=== PATIENT | female | born 1995 | race Caucasian/White ===

== ENCOUNTER 2017-06-23 23:41 | Emergency (ER) | payer OTHER ==
[~2017-06-23] VITALS: Ht 167.6 cm; Wt 61.0 kg
[2017-06-23 23:46] VITALS: TEMP 36.8; Ht 167.6 cm; Wt 61.0 kg
[2017-06-24] MEDS ORDERED: ONDANSETRON INJ 2 MG/ML 2 ML VIAL IV STA (00:18)
[2017-06-24] MEDS ORDERED: SODIUM CHLORIDE 0.9% 1000ML 1,000 ML IV STA (00:18)
[2017-06-24] MEDS ORDERED: ACETAMINOPHEN 500 MG TAB PO STA (00:18)
[2017-06-24] MEDS ORDERED: EPP3/2 IM (00:36)
--- NOTE | 2017-06-24 00:42 | EMERGENCY ROOM VISIT NOTE ---
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 Patient states that she ate the pizza bagel at a restaurant around 6 PM, her symptoms started about 3-1/2 hours after that and came on fairly suddenly. She denies any diarrhea, but states she has a sensation of needing to use the bathroom and states she just had gas. She did not take any medications for her symptoms. She states she felt a little bit better after vomiting, but continues to have some lower abdominal pain. She denies any headache, neck pain, chest pain, shortness of breath, back pain, urinary symptoms, abnormal vaginal bleeding or discharge, rash. Review of Systems A complete 10 point review of systems was reviewed with the patient with pertinent positives and negatives as per history of present illness. All else were negative. Past Medical/Surgical History No significant past medical or surgical history. Social History Smoking Status: Never Smoker Alcohol Use: none Drug Use: none Marital Status: single Occupation Status: [place] [employer] student Current/Historical Medications Scheduled Ondasetron Odt (Zofran Odt), 4 MG SL Q6H Scheduled PRN Epinephrine (Epipen), 0.3 MG IM UD PRN for ALLERGIC REACTION Allergies NKDA Physical Exam Vital Signs Date Time Temp Pulse Resp B/P (MAP) Pulse Ox O2 Delivery O2 Flow Rate FiO2 06/24/17 06:24 68 18 112/71 99 Room Air 06/24/17 04:14 66 06/24/17 02:28 76 18 108/67 100 Room Air 06/24/17 00:49 77 06/23/17 23:46 36.8 73 18 133/78 99 Room Air Physical Exam CONSTITUTIONAL: No acute distress. Nontoxic appearing. Well hydrated. Alert and oriented X 4 with normal affect. HEENT: Normocephalic, atraumatic. Pupils equal, round and reactive to light, EOMI. TMs normal. Pharynx normal. NECK: Supple, full active range of motion without discomfort. RESPIRATORY: Clear to auscultation bilaterally with no wheezing, crackles, rhonchi or stridor. Equal expansion bilaterally. CARDIOVASCULAR: Regular rate and rhythm with no murmurs, rubs or gallops. Normal peripheral perfusion. No edema. GASTROINTESTINAL: Mild tenderness in suprapubic and LLQ region, abdomen is otherwise soft and nontender, nondistended. No rebound tenderness, no guarding. No CVA tenderness. Normal bowel sounds in all 4 quadrants. MUSCULOSKELETAL: Full range of motion of all joints without discomfort. INTEGUMENTARY: No rash or other significant dermatologic conditions noted. NEUROLOGIC: Cranial nerves II-XII grossly intact. No focal neurologic deficits noted. Medical Decision & Procedures ER Provider Diagnostic Interpretation: KUB CLINICAL HISTORY: Left lower quadrant abdominal pain. FINDINGS: 2 AP standing abdominal radiographs are obtained. No prior studies are available for comparison at the time of dictation. There is a nonobstructed abdominal bowel gas pattern noting moderate colonic fecal retention. No evidence of intraperitoneal free air is seen. There are no abnormal abdominal calcifications. The bony structures appear intact. The lung bases are clear as imaged. IMPRESSION: Nonobstructed abdominal bowel gas pattern noting moderate constipation. Laboratory Results 06/24/17 00:35 Red Blood Count 4.60, Mean Corpuscular Volume 85.2, Mean Corpuscular Hemoglobin 29.3, Mean Corpuscular Hemoglobin Concent 34.4, Mean Platelet Volume 10.0, Neutrophils (%) (Auto) 84.4, Lymphocytes (%) (Auto) 10.0, Monocytes (%) (Auto) 4.6, Eosinophils (%) (Auto) 0.4, Basophils (%) (Auto) 0.2, Neutrophils # (Auto) 11.27, Lymphocytes # (Auto) 1.34, Monocytes # (Auto) 0.61, Eosinophils # (Auto) 0.05, Basophils # (Auto) 0.03 06/24/17 00:35 Test 06/24/17 00:35 White Blood Count 13.35 K/uL (4.8-10.8) Red Blood Count 4.60 M/uL (4.2-5.4) Hemoglobin 13.5 g/dL (12.0-16.0) Hematocrit 39.2 % (37-47) Mean Corpuscular Volume 85.2 fL (80-100) Mean Corpuscular Hemoglobin 29.3 pg (25-34) Mean Corpuscular Hemoglobin Concent 34.4 g/dl (32-36) Platelet Count 282 K/uL (130-400) Mean Platelet Volume 10.0 fL (7.4-10.4) Neutrophils (%) (Auto) 84.4 % Lymphocytes (%) (Auto) 10.0 % Monocytes (%) (Auto) 4.6 % Eosinophils (%) (Auto) 0.4 % Basophils (%) (Auto) 0.2 % Neutrophils # (Auto) 11.27 K/uL (1.4-6.5) Lymphocytes # (Auto) 1.34 K/uL (1.2-3.4) Monocytes # (Auto) 0.61 K/uL (0.11-0.59) Eosinophils # (Auto) 0.05 K/uL (0-0.5) Basophils # (Auto) 0.03 K/uL (0-0.2) RDW Standard Deviation 38.9 fL (36.4-46.3) RDW Coefficient of Variation 12.5 % (11.5-14.5) Immature Granulocyte % (Auto) 0.4 % Immature Granulocyte # (Auto) 0.05 K/uL (0.00-0.02) Urine Color YELLOW Urine Appearance CLEAR (CLEAR) Urine pH 5.5 (4.5-7.5) Urine Specific [place] 1.031 (1.000-1.030) Urine Protein NEG (NEG) Urine Glucose (UA) NEG (NEG) Urine Ketones TRACE (NEG) Urine Occult Blood NEG (NEG) Urine Nitrite NEG (NEG) Urine Bilirubin NEG (NEG) Urine Urobilinogen NEG (NEG) Urine Leukocyte Esterase TRACE (NEG) Urine WBC (Auto) 1-5 /hpf (0-5) Urine RBC (Auto) 0-4 /hpf (0-4) Urine Hyaline Casts (Auto) 1-5 /lpf (0-5) Urine Epithelial Cells (Auto) >30 /lpf (0-5) Urine Bacteria (Auto) NEG (NEG) Urine Test NEG (NEG) Anion Gap 8.0 mmol/L (3-11) Est Creatinine Clear Calc Drug Dose 114.0 ml/min Estimated GFR () 136.5 Estimated GFR (Non- 117.7 BUN/Creatinine Ratio 22.6 (10-20) Calcium Level 9.1 mg/dl (8.5-10.1) Total Bilirubin 0.4 mg/dl (0.2-1) Direct Bilirubin < 0.1 mg/dl (0-0.2) Aspartate Amino Transf (AST/SGOT) 8 U/L (15-37) Alanine Aminotransferase (ALT/SGPT) 12 U/L (12-78) Alkaline Phosphatase 48 U/L (45-117) Total Protein 8.2 gm/dl (6.4-8.2) Albumin 4.5 gm/dl (3.4-5.0) Lipase 178 U/L (73-393) Medications Administered Medications (Trade) Dose Ordered Sig/Patrice Route Start Time Stop Time Status Last Admin Dose Admin Sodium Chloride 1,000 ml @ 999 mls/hr Q1H1M STAT IV 06/24/17 00:18 06/24/17 01:18 DC 06/24/17 00:52 999 MLS/HR Ondansetron HCl (Zofran Inj) 4 mg NOW STAT IV 06/24/17 00:18 06/24/17 00:21 DC 06/24/17 00:52 4 MG Acetaminophen (Tylenol Tab) 1,000 mg NOW STAT PO 06/24/17 00:18 06/24/17 00:21 DC 06/24/17 00:52 1,000 MG Ketorolac Tromethamine (Toradol Inj) 15 mg NOW STAT IV 06/24/17 02:39 06/24/17 02:41 DC 06/24/17 02:59 15 MG Medical Decision CC: Patient presenting with complaint of nausea/vomiting, abdominal pain Interpretation of Labs: Leukocytosis, no anemia, no significant electrolyte abnormalities, normal renal function, normal liver enzymes and lipase, UA negative, urine negative. Differential Diagnosis: Includes, but not limited to gastritis, gastroenteritis , food-borne illness, constipation, bowel obstruction, among others. Medication Reconciliation: I attest that I have personally reviewed the patient' s current medication list. Vital signs review: I reviewed the patient's vital signs and interpret them as follows: T: Afebrile; BP: Normotensive; HR: Within normal limits; RR: Within normal limits; Pulse Ox: Within normal limits on room air. Summary: Patient was evaluated at bedside, history of physical exam performed. Patient is alert and oriented, no acute distress, resting calmly in the stretcher. On exam patient has mild tenderness in the suprapubic and left lower quadrant abdomen, the abdomen is otherwise nontender. Soft and nondistended, normal bowel sounds. No rebound tenderness or guarding noted on exam. Patient reports her symptoms came on a few hours after eating food at a restaurant that she has night before, she thinks she may have gotten food poisoning. No known recent sick contacts with GI symptoms. Orders were placed at bedside for labs, UA, urine , IV fluids for hydration, acute abdominal series to rule out bowel obstruction. Patient discussed with Dr. Manzo, who agrees with my assessment and plan. Labs reviewed as above, no acute abnormalities noted. She is not . Abdominal x-ray negative for any signs of bowel obstruction, notable for moderate fecal load consistent with constipation. Patient reassessed multiple times throughout ED stay, she reports that she is feeling much better, states her pain is now resolved. Patient was updated on all results and plan for discharge, she was encouraged to follow up with her PCP or [facility]. Patient was also given return strict precautions should her abdominal pain persist or worsen in any way, she verbalized understanding. Patient was discharged home in stable condition and ambulatory. Impression Primary Impression: Nausea and vomiting Additional Impression: Lower abdominal pain Departure Information Dispostion Home / Self-Care Condition GOOD Prescriptions Ondasetron Odt (ZOFRAN ODT) 4 Mg Tab 4 MG SL Q6H for Nausea, #6 TAB Prov: Anita Parikh CRNP 06/24/17 Referrals [facility] (PCP) Patient Instructions ED Diet [place], ED Food Poison Or Gastroenteritis, My [facility] Additional Instructions You have been treated in the Emergency Department your Abdominal Pain. Laboratory results and imaging studies have ruled out any emergent causes for your abdominal pain which would warrant admission or surgery. You have been prescribed Zofran to be used for any nausea or vomiting. Take as prescribed. For pain control, you can use the following [id number] medicines (if >12 yo): - Regular strength (325mg/tab) Tylenol (acetaminophen) 2 tabs every 4-6 hours as needed. Do not exceed 12 tablets in a 24 hour period. Avoid taking more than 4 grams (4000 mg) of Tylenol per day. This includes any other sources of acetaminophen you may take on a regular basis. - Regular strength (200 mg/tab) Advil (ibuprofen) 1-2 tabs every 4-6 hours as needed. Do not exceed a dose of 3200 mg per day. Drink plenty of fluids and stay well hydrated. Eat bland foods and avoid dairy , fatty foods, spicy foods until you are feeling back to normal As with any trip to the Emergency Department, you should follow-up with your Primary Care Provider in the next few days from today's visit. Return to the emergency department if your abdominal pain persists or worsens over the next 24 hours, if you develop fever/chills, worsening nausea/vomiting, vomiting blood or bile, blood in your stool or urine, or any other concerns. Work Instructions Return To Work: 1 day Problem Qualifiers Primary Impression: Nausea and vomiting Vomiting type: unspecified Vomiting Intractability: non-intractable Qualified Codes: R11.2 - Nausea with vomiting, unspecified
[2017-06-24 00:47] LABS: BASO % 0.2 %; BASO ABS # 0.03 K/uL (0-0.2); COMPLETE YES; EOS % 0.4 %; HEMATOCRIT 39.2 % (37-47); IG% 0.4 %; LYMPH ABS # 1.34 K/uL (1.2-3.4); MEAN CELL VOLUME 85.2 fL (80-100); MEAN CORPUSCULAR HEMOGLOBIN 29.3 pg (25-34); MEAN CORPUSCULAR HGB CONC 34.4 g/dl (32-36); MONO % 4.6 %; NEUT % 84.4 %; PLATELET COUNT 282 K/uL (130-400); WHITE BLOOD COUNT 13.35 K/uL (4.8-10.8)
[2017-06-24 01:06] LABS: URINE APPEARANCE CLEAR (CLEAR); URINE BILIRUBIN NEG (NEG); URINE COLOR YELLOW; URINE EPITHELIAL CELL AUTO >30 /lpf (0-5); URINE NITRITE NEG (NEG); URINE PH 5.5 (4.5-7.5); URINE SPECIFIC GRAVITY 1.031 (1.000-1.030); UROBILINOGEN NEG (NEG); ZZUR CULT IF INDIC CLEAN CATCH NO
[2017-06-24 01:07] LABS: ALT/SGPT 12 U/L (12-78); AST/SGOT 8 U/L (15-37); BLOOD UREA NITROGEN 16 mg/dl (7-18); BUN/CREATININE RATIO 22.6 (10-20); CALCIUM 9.1 mg/dl (8.5-10.1); CARBON DIOXIDE 24 mmol/L (21-32); CHLORIDE 106 mmol/L (98-107); CREATININE 0.73 mg/dl (0.60-1.20); GLUCOSE 105 mg/dl (70-99); POTASSIUM 3.8 mmol/L (3.5-5.1); SODIUM 138 mmol/L (136-145)
[2017-06-24 01:10] LABS: ALKALINE PHOSPHATASE 48 U/L (45-117)
[2017-06-24 01:22] LABS: MANUAL MICROSCOPIC REQUIRED? NO; REVIEW REQ? YES
[2017-06-24] MEDS ORDERED: KETOROLAC TROMETHAMINE 30 MG/ML VIAL IV STA (02:39)
[2017-06-24] MEDS ORDERED: ONDA4TAB10 SL (06:17)
[2017-06-24 06:24] VITALS: BP 112/71; PULSE 68; O2SAT 99
--- NOTE | 2017-06-24 08:43 | DIAGNOSTIC IMAGING REPORT ---
KUB CLINICAL HISTORY: Left lower quadrant abdominal pain. FINDINGS: 2 AP standing abdominal radiographs are obtained. No prior studies are available for comparison at the time of dictation. There is a nonobstructed abdominal bowel gas pattern noting moderate colonic fecal retention. No evidence of intraperitoneal free air is seen. There are no abnormal abdominal calcifications. The bony structures appear intact. The lung bases are clear as imaged. IMPRESSION: Nonobstructed abdominal bowel gas pattern noting moderate constipation. Electronically signed by: Willard Bautista M.D. 06/24/2017 8:42 AM Dictated Date/Time: 06/24/2017 8:41 AM
== END 2017-06-24 06:28 | disposition home or self-care (01) ==
LOC: C.EDB 23:43
DX: R11.2 Nausea with vomiting, unspecified (principal); R10.30 Lower abdominal pain, unspecified